=== PATIENT | female | born 1955 | race Caucasian/White ===

== ENCOUNTER → 2016-12-12 | Outpatient (CLI) | payer OTHER | END | disposition home or self-care (01) | LOC: CFH 10:20 | PROVIDERS: ATTEND Otolaryngology Facial Plastic Surgery | DX: J32.0 Chronic maxillary sinusitis (principal); J32.2 Chronic ethmoidal sinusitis; J34.2 Deviated nasal septum; J30.1 Allergic rhinitis due to pollen | CPT/HCPCS: 70486 ==

== ENCOUNTER → 2017-01-04 | Outpatient (CLI) | payer OTHER ==
[~2017-01-04] MED LIST: ALBU90AE PO; AMIT25TA PO; AMLO10TA2 PO; CALC-116 PO; CAT PO; CETI10TA24 PO; CHOL10003 PO; CINN1CAP PO; DICL100G25 TP; FLUT1DIS3 INH; FLUT9.9S NS; GLUC-104 PO; GUAI-44 PO; HYDR12.58 PO; LUTE1CAP3 PO; MAGN500T3 PO; METHYL FOLATE PO; MONT10TA9 PO; MULT-516 PO; OMEG-133 PO; PHEN-416 PO; TIOT18CA INH; UBID1CAP52 PO-COUM; VITA1TAB10 PO; VITA400C40 PO
[2017-01-04 14:07] LABS: ASPARTATE AMINO TRANSFERASE 13 U/L (15-37); BLOOD UREA NITROGEN 15 mg/dL (7-18)
== END | disposition home or self-care (01) ==
LOC: STAR 12:39
PROVIDERS: ATTEND Otolaryngology Facial Plastic Surgery
DX: Z01.818 Encounter for other preprocedural examination (principal); J32.8 Other chronic sinusitis; J34.2 Deviated nasal septum
CPT/HCPCS: 36415; 71020; 80053; 85025; 93005